=== PATIENT | male | born 1985 | race Caucasian/White ===

== ENCOUNTER 2020-07-21 09:47 | Emergency (ER) | payer OTHER | END 2020-07-21 12:07 | disposition home or self-care (01) | LOC: FER 09:47 | DX: J30.9 Allergic rhinitis, unspecified (principal); Z20.822 Contact with and (suspected) exposure to COVID-19 | CPT/HCPCS: 99284; U0002 ==

== ENCOUNTER 2021-10-02 16:12 | Emergency (ER) | payer OTHER ==
[2021-10-02] MEDS ORDERED: IBU800 MG PO (17:37)
== END 2021-10-02 18:47 | disposition home or self-care (01) ==
LOC: FER 16:12
DX: S86.011A Strain of right Achilles tendon, initial encounter (principal); X58.XXXA Exposure to other specified factors, initial encounter; Y93.67 Activity, basketball; Y92.009 Unspecified place in unspecified non-institutional (private) residence as the place of occurrence of the external cause
CPT/HCPCS: 73590; 73700; J1885